=== PATIENT | female | born 1990 | race American Indian/Alaskan Native ===

== ENCOUNTER 2017-04-11 14:55 | Outpatient (CLI) | payer MEDICAID ==
[2017-04-11] MEDS ORDERED: NORMODYNE PO SCH (16:00)
[2017-04-11] MEDS ORDERED: LACTATED RINGERS 1,000 ML IV SCH (16:00)
[2017-04-11 16:40] LABS: Hematocrit 25.9 % (30.3-42.9); Hemoglobin 8.9 gm/dl (10.1-14.3); Mean Corpuscular HGB Conc 34 % (30-34); Mean Corpuscular Hemoglobin 28 pg (28-32); Mean Corpuscular Volume 80 fl (79-97); Platelet Count 217 K/mm3 (140-440); Red Blood Count 3.23 M/mm3 (3.65-5.03); Red Cell Distribution Width 14.2 % (13.2-15.2); White Blood Count 5.3 K/mm3 (4.5-11.0)
[2017-04-11 16:46] LABS: Bacteria,Urine 1+ /HPF (Negative); Bilirubin,Urine NEG (Negative); Blood,Urine NEG (Negative); Ketones,Urine TR mg/dL (Negative); Leukocyte Esterase,Urine SM (Negative); Mucus,Urine 3+ /HPF; Nitrite,Urine NEG (Negative)
[2017-04-11 16:58] VITALS: BP 129/90
[2017-04-11 16:58] LABS: Alanine Aminotransferase 18 units/L (7-56); Lactate Dehydrogenase 201 units/L (91-180); Uric Acid 3.5 mg/dL (3.5-7.6)
== END 2017-04-11 18:00 | disposition home or self-care (01) ==
LOC: TRG 14:55
PROVIDERS: ATTEND Obstetrics & Gynecology
DX: O47.1 False labor at or after 37 completed weeks of gestation (principal); Z3A.37 37 weeks gestation of pregnancy
CPT/HCPCS: 36415; 59025; 81001; 82565; 83615; 84450; 84460; 84550; 85027

== ENCOUNTER 2017-04-18 16:02 | Inpatient (IN) | payer MEDICAID ==
[2017-04-18 17:40] LABS: Hematocrit 26.2 % (30.3-42.9); Hemoglobin 8.9 gm/dl (10.1-14.3); Mean Corpuscular HGB Conc 34 % (30-34); Mean Corpuscular Hemoglobin 27 pg (28-32); Mean Corpuscular Volume 80 fl (79-97); Platelet Count 246 K/mm3 (140-440); Red Blood Count 3.28 M/mm3 (3.65-5.03); Red Cell Distribution Width 14.6 % (13.2-15.2); White Blood Count 5.5 K/mm3 (4.5-11.0)
[2017-04-18 17:56] LABS: Alanine Aminotransferase 21 units/L (7-56); Lactate Dehydrogenase 216 units/L (91-180); Uric Acid 4.3 mg/dL (3.5-7.6)
[2017-04-18] MEDS ORDERED: REGLAN IV SCH (19:00)
[2017-04-18] MEDS ORDERED: ANCEF/STERILE WATER 2 GM/20 ML 2 GM/20 ML SYRINGE IV NR (19:00)
[2017-04-18] MEDS ORDERED: BICITRA PO ONE (19:00)
[2017-04-18] MEDS ORDERED: PITOCin/NS 20 UNIT/1000ML DRIP 20 UNITS/1,000 ML BAG IV SCH (19:00)
[2017-04-18] MEDS ORDERED: LACTATED RINGERS 1,000 ML IV SCH ×2 (19:00→22:26)
[2017-04-18] MEDS ORDERED: PEPCID IV ONE (19:00)
--- NOTE | 2017-04-18 19:19 | History and Physical Report ---
History of Present Illness Date of examination: 04/18/17 Date of admission: 04/18/17 16:03 Chief complaint: CTHN with superimposed preeclampsia History of present illness: Past History : 5 Term Births: 3 Premature Births: 1 Living Children: 4 Para: 4 Mult. Births: 1 Prev : 1 Aborta: 0 Elect. Ab: 0 Spont. Ab: 0 Ectopics: 0 # 1 Delivery date: 10/06/2009 Weeks Gestation: 39 labor: no Delivery type: Hours of labor: >12 Anesthesia type: none Delivery location: [place] [facility] Sex: Male weight: 7lb8oz Name: Kelly # 2 Delivery date: 03/29/2011 Weeks Gestation: T labor: no Delivery type: Hours of labor: 1 Sex: Male Comments: precipitous labor delivered at home or on the [facility] # 3 Delivery date: 07/25/2013 Weeks Gestation: 23 labor: yes Delivery type: Infant Sex: Female Comments: twins, one in utero, PTL, twin del vag then emergency c/s for girl who survived. # 4 Delivery date: 12/06/2015 Weeks Gestation: 39 Delivery type: Anesthesia type: Spinal Delivery location: [facility] Sex: female weight: 5.69 Comments: inadequate care Risk Factors: Smoked Tobacco Use: Never smoker Smokeless Tobacco Use: Never Passive smoke exposure: no Drug use: no HIV high-risk behavior: low risk Caffeine use: 0 drinks per day Alcohol use: no Seatbelt use: preg-camp counselor % Dietary Counseling: pn yes Past Medical History: Reviewed history from 12/04/2010 and no changes required: CHTN Past Surgical History: Reviewed history from 08/30/2015 and no changes required: O-uufolvy-kqwofrmjw at 23 weeks X 2 Past Medical History Surgery (Non-dinkey operator): V-fvrlzgb-afcwthuyi at 23 weeks X 2 Abnormal PAP: negative DANY Exposure: negative Infertility: negative Uterine Anomaly: negative Uterine Surgery (not C/S): negative Other Gynecologic Problems: negative Social Hx: Patient is single Unemployed Infection History Hx of STD: none HIV Risk Eval: low risk Hepatitis B Risk Eval: low risk Personal hx. of genital herpes: no Partner hx. of genital herpes: no Rash, Viral, or Febrile illness since last LMP? no Varicella/Chicken Pox Status: Immunized TB Risk: no Genetic History Congenital Heart Defect: Mom: no Dad: no Fantasma Disease: Mom: no Dad: no Thalassemia Mom: no Dad: no Neural Tube Defect Mom: no Dad: no Down's Syndrome Mom: no Dad: no Sarath-Sachs Mom: no Dad: no Sickle Cell Disease/Trait Mom: no Dad: no Hemophilia Mom: no Dad: no Muscular Dystrophy Mom: no Dad: no Cystic Fibrosis Mom: no Dad: no [place] Chorea Mom: no Dad: no Mental Retardation Mom: no Dad: no Fragile X Mom: no Dad: no Other Genetic/Chromosomal Disorder Mom: no Dad: no Child w/other defect Mom: no Dad: no Enviromental Exposures Xray Exposure: no Medication, drug, or alcohol use since LMP: no Chemical/Other Exposure: no Exposure to Cat Liter: no Hx of Parvovirus (Fifth Disease): no Occupational Exposure to Children: none FALSECurrent Allergies: No known allergies Past History Past Medical History: hypertension - Obstetrical History Expected Date of Delivery: 04/27/17 Actual Gestation: 38 Week(s) 5 Day(s) : 5 Medications and Allergies Allergies Allergy/AdvReac Type Severity Reaction Status Date / Time No Known Allergies Allergy Verified 12/06/15 09:54 Home Medications Medication Instructions Recorded Confirmed Last Taken Type Ferrous Sulfate [Feosol 325 MG tab] 325 mg PO BID #60 tablet 07/24/13 12/06/15 Unknown Rx HYDROcodone/APAP 5-325 [[place] 1 each PO Q6HR PRN #30 tablet 07/24/13 12/06/15 Unknown Rx 5/325 mg] Ibuprofen [Motrin] 600 mg PO Q6H PRN #30 tablet 07/24/13 12/06/15 Unknown Rx Gar257/Iron Fumarate/FA/Dss 1 each PO QDAY #30 tablet 07/24/13 12/06/15 1 Day Ago Rx [ 19 Tablet] Ferrous Sulfate [Feosol 325 MG tab] 325 mg PO BID #60 tablet 12/06/15 Unknown Rx Ibuprofen [Motrin 800 MG tab] 800 mg PO Q6H PRN #30 tablet 12/06/15 Unknown Rx oxyCODONE /ACETAMINOPHEN [Percocet 1 - 2 tab PO Q4H PRN #30 tablet 12/06/15 Unknown Rx 5/325 mg] Labetalol [Normodyne TAB] 200 mg PO BID #60 tablet 12/08/15 Unknown Rx Active Meds: Active Medications Cefazolin Sodium (Ancef/Sterile Water 2 Gm/20 Ml) 2 gm in 20 mls @ 80 mls/hr IV PREOP NR PRN Reason: Protocol Stop: 04/19/17 06:00 Lactated Ringer's (Lactated Ringers) 1,000 mls @ 2,250 mls/hr IV PREOP PAULIE Stop: 04/19/17 19:27 Last Admin: 04/18/17 18:54 Dose: 2,250 mls/hr Oxytocin/Sodium Chloride (Pitocin/Ns 20 Unit/1000ml Drip) 20 units in 1,000 mls @ 0 mls/hr IV TITR PAULIE PRN Reason: As Directed Metoclopramide HCl (Reglan) 10 mg IV ONCE PAULIE Stop: 04/19/17 06:00 Last Admin: 04/18/17 19:08 Dose: 10 mg Review of Systems All systems: negative Neurological: headaches - Vital Signs Vital signs: Vital Signs Pulse BP 83 143/86 04/18/17 16:24 04/18/17 16:24 Temp Pulse Resp BP Pulse Ox 98.9 F 89 16 144/90 97 04/18/17 17:51 04/18/17 19:01 04/18/17 17:51 04/18/17 19:01 04/18/17 18:27 - Physical Exam Breasts: Positive: deferred Cardiovascular: Regular rate Lungs: Positive: Normal air movement Abdomen: Positive: normal appearance Uterus: Positive: normal size Results Result Diagrams: 04/18/17 17:12 04/18/17 17:12 Abnormal lab results 04/18/17 04/18/17 Range/Units 17:12 17:12 RBC 3.28 L (3.65-5.03) M/mm3 Hgb 8.9 L (10.1-14.3) gm/dl Hct 26.2 L (30.3-42.9) % MCH 27 L (28-32) pg Creatinine 0.3 L (0.7-1.2) mg/dL AST 43 H (5-40) units/L Lactate Dehydrogenase 216 H (91-180) units/L All other labs normal. Assessment and Plan - Patient Problems (1) 38 weeks gestation of Current Visit: Yes Status: Acute (2) Chronic hypertension with superimposed preeclampsia Current Visit: Yes Status: Acute (3) Maternal care for scar from previous delivery Current Visit: Yes Status: Acute Qualifiers: Previous delivery type: P Plan to address problem: her diagnosis explained. Questions answered, consents reviewed. She declines sterilization. She was informed with each surgery her risks for severe and major complications increases substantiately i.e. injury fot bowel, bladder, bleeding that requires hysterectomy and possible blood transfusion and reactions and infections. She voiced understanding and desires to proceed with c /s delivery at this time without sterilization.
[2017-04-18] MEDS ORDERED: ZOFRAN ONE (19:27)
[2017-04-18] MEDS ORDERED: WATER FOR IRRIG STERILE IR ONE (19:30)
[2017-04-18] MEDS ORDERED: NACL 0.9% IR ONE (19:30)
[2017-04-18] MEDS ORDERED: MORPHINE ONE (19:48)
[2017-04-18] MEDS ORDERED: NEOSTIGMINE ONE (19:48)
[2017-04-18] MEDS ORDERED: VERSED ONE ×2 (19:49→20:09)
[2017-04-18] MEDS ORDERED: NEO SYNEPHRINE/NS Syringe(OR USE) IV ONE (20:00)
[2017-04-18] MEDS ORDERED: XYLOCAINE MPF 2% ONE (20:08)
[2017-04-18] MEDS ORDERED: BENADRYL IV PRN (20:44)
[2017-04-18] MEDS ORDERED: MORPHINE IV PRN ×4 (20:44→22:26)
[2017-04-18] MEDS ORDERED: ZOFRAN IV PRN ×2 (20:44→22:26)
[2017-04-18] MEDS ORDERED: TORADOL IV PRN ×2 (20:45→22:26)
[2017-04-18] MEDS ORDERED: NARCAN 0.4 MG/1 ML IV PRN ×2 (20:46→22:26)
--- NOTE | 2017-04-18 20:46 | Post Anesthesia Evaluation ---
- Post Anesthesia Evaluation Patient Participated: Yes Airway Patent: Yes Stable Respiratory Function: Yes Nausea/Vomiting: No Temp > 96.8F: Yes Pain Manageable: Yes Adequeate Hydration: Yes Anesthesia Complications: No Block Receding Appropriately: Yes Patient on Ventilator: No
--- NOTE | 2017-04-18 20:46 | Anesthesia Day of Surgery ---
Anesthesia Day of Surgery - Day of Surgery Patient Examined: Yes Patient H&P Reviewed: Yes Patient is NPO: Yes
--- NOTE | 2017-04-18 20:46 | Anesthesia Consultation ---
Anesthesia Consult and Med Hx Date of service: 04/18/17 - Airway Anesthetic Teeth Evaluation: Good ROM Head & Neck: Adequate Mental/Hyoid Distance: Adequate Mallampati Class: Class II Intubation Access Assessment: Probably Good - Pulmonary Exam CTA: Yes - Cardiac Exam Cardiac Exam: RRR - Pre-Operative Health Status ASA Pre-Surgery Classification: ASA3 Proposed Anesthetic Plan: Epidural, Spinal - Pulmonary Hx Asthma: No COPD: No Hx Pneumonia: No - Cardiovascular System Hx Hypertension: Yes (chronic with superimposed pre-eclampsia) - Central Nervous System Hx Seizures: No Hx Psychiatric Problems: No - Endocrine Hx Renal Disease: No Hx End Stage Renal Disease: No Hx Hypothyroidism: No Hx Hyperthyroidism: No - Hematic Hx Anemia: Yes Hx Sickle Cell Disease: No - Other Systems Hx Alcohol Use: No Hx Obesity: Yes - Additional Comments Anesthesia Medical History Comments: +IUP
--- NOTE | 2017-04-18 20:53 | Operative Report ---
Operative Report Operative Report: Date of procedure: 04/18/2017 Pre-operative diagnosis: 1. Intrauterine at 38 weeks 2. Previous requiring repeat 3. Chronic hypertension with superimposed preeclampsia Post-operative diagnosis: 1. Intrauterine at 38 weeks 2. Previous requiring repeat 3. Chronic hypertension with superimposed preeclampsia Procedure name(s): Low transverse section Surgeon: Marisel Campos MD Escalation Engineer: Miryam Lincoln CST Anesthesia: Epidural EBL: 800 mL Complications: None Findings: Liveborn male . Weight 8 lbs. 14 oz. Apgars 8 at 1 minute 9 at 5 minutes. Anesthesiologist: Patience Jj M.D. Procedure: After risks, benefits, and complications and alternatives and consequences, were discussed with patient, and she voiced her understanding and desired to proceed. Patient was taken to the OR, where epidural anesthesia was placed. She was then placed in the left lateral tilt position, and prepped and draped in the usual sterile fashion. After timeout was performed, and an appropriate level of anesthesia was noted, a Pfannenstiel incision was made and extended to the fascia. The fascia was incised and extended in a lateral direction. The overlying fascia was sharply dissected away from the underlying rectus muscles in the superior-inferior direction. The midline was entered bluntly. The vesicouterine fold was incised and with blunt and sharp dissection the bladder flap was created. A transverse incision was made in the lower uterine segment and extended in the superior lateral direction with finger fractionation. Clear fluid was noted. The infant was delivered from the cephalic position.The cord was doubly clamped and cut. The infant's mouth and nose were bulb suctioned. And the was given to the resuscitation team present. The placenta was manually extracted. The uterus was exteriorized and cleaned any products of conception and placental tissue. The incision was reapproximated using 0 Vicryl in a running interlocking stitch. The incision was further reinforced with 0 Vicryl in imbricating fashion. Grossly normal tubes and ovaries were noted. Once hemostasis was noted, the uterus was allowed back into the pelvic cavity. The pelvis was irrigated with warm normal saline. Once hemostasis was noted, Tisseel was applied to the anterior surface of the incision. Once hemostasis was noted, Interceed was applied to the anterior aspect of the uterus for adhesion prevention. Once hemostasis was noted, attention was turned to the rectus muscles. The rectus muscle was reapproximated using 0 Vicryl in a simple interrupted stitch fashion. Once hemostasis was noted, the fascia was reapproximated using 0 Vicryl in a simple running stitch. Once hemostasis was noted, the incision was irrigated with normal saline. The incision was then reapproximated using 4-0 Vicryl on a Dustin needle in a subcuticular manner. Patient tolerated the procedure well she was taken to recovery room in stable condition. Counts were correct 3
[2017-04-18] MEDS ORDERED: TYLENOL PO PRN (22:26)
[2017-04-18] MEDS ORDERED: PHENERGAN PR PRN (22:26)
[2017-04-18] MEDS ORDERED: LANSINOH TP PRN (22:26)
[2017-04-18] MEDS ORDERED: MOTRIN PO PRN (22:26)
[2017-04-18] MEDS ORDERED: MAGNESIUM SULFATE 4GM/100ML 4 GM/100 ML BAG IV ONE (22:26)
[2017-04-18] MEDS ORDERED: TUCKS PAD TP PRN (22:26)
[2017-04-18] MEDS ORDERED: MYLICON PO PRN (22:26)
[2017-04-18] MEDS ORDERED: SODIUM CHLORIDE FLUSH SYRINGE 10 ML IV PRN (22:26)
[2017-04-18] MEDS ORDERED: TYLENOL PR PRN (22:26)
[2017-04-18] MEDS ORDERED: APRESOLINE IV PRN (22:26)
[2017-04-18] MEDS: MAGNESIUM SULFATE 40GM/1000ML 40 GM/1,000 ML BAG IV SCH (23:00)
[2017-04-18] MEDS: PITOCin/NS 20 UNIT/1000ML DRIP 20 UNITS/1,000 ML BAG IV SCH (23:38)
[2017-04-19] MEDS: ANCEF/NS 1 GM/50 ML 1 GM/50 ML BAG IV SCH ×2 (03:01→10:25)
[2017-04-19 08:59] LABS: Hematocrit 28.9 % (30.3-42.9); Hemoglobin 9.7 gm/dl (10.1-14.3)
[2017-04-19] MEDS: PERCOCET 5/325 PO PRN ×3 (10:25→23:44)
[2017-04-19] MEDS: PITOCin/NS 20 UNIT/1000ML DRIP 20 UNITS/1,000 ML BAG IV SCH (11:28)
--- NOTE | 2017-04-19 11:44 | Progress Note ---
Assessment and Plan - Patient Problems (1) Chronic hypertension with superimposed preeclampsia Onset Date: Unknown Current Visit: Yes Status: Acute Plan to address problem: add Labetolol back, cont Mag to complete 24 hours (2) delivery delivered Onset Date: 04/18/17 Current Visit: No Status: Acute Subjective - Subjective Date of service: 04/19/17 Principal diagnosis: r c/s, chr HTN with superimposed PreE Interval history: VVS but BP trending up, will restart Labetolol 20mg bid. On Mag until 2200 tonight. DTR brisk Patient reports: appetite normal, pain well controlled : doing well Objective - Vital Signs Latest vital signs: Vital Signs Temp Pulse Pulse Resp BP BP Pulse Ox 04/19/17 08:10 98.0 F 71 17 140/90 04/19/17 06:00 98.3 F 65 18 123/77 04/19/17 04:00 98.2 F 65 18 132/82 04/19/17 02:30 98.2 F 65 20 133/81 04/18/17 23:45 98.4 F 64 20 144/88 04/18/17 22:05 16 04/18/17 22:00 66 16 130/95 98 04/18/17 21:45 63 16 136/91 98 04/18/17 21:30 66 16 137/85 98 04/18/17 21:15 67 19 131/84 98 04/18/17 21:00 75 18 125/79 98 04/18/17 20:45 78 19 129/79 97 04/18/17 20:40 83 16 126/82 97 04/18/17 20:36 98.0 F 83 20 118/68 97 04/18/17 19:01 89 144/90 04/18/17 18:27 80 97 04/18/17 18:22 81 99 04/18/17 18:21 81 147/91 04/18/17 18:17 82 98 04/18/17 18:16 79 143/85 04/18/17 18:12 86 98 04/18/17 18:07 82 98 04/18/17 18:02 80 99 04/18/17 18:01 80 129/77 04/18/17 17:57 84 98 04/18/17 17:52 83 99 04/18/17 17:51 98.9 F 80 16 130/78 98 04/18/17 17:46 90 130/78 04/18/17 17:44 85 98 04/18/17 17:39 78 97 04/18/17 17:34 84 98 04/18/17 17:31 93 H 128/78 04/18/17 17:29 84 99 04/18/17 17:17 80 134/83 04/18/17 17:01 94 H 135/88 04/18/17 16:24 83 143/86 Intake and Output 04/18/17 04/19/17 04/19/17 22:59 06:59 14:59 Intake Total 500 1320 480 Output Total 450 6200 2300 Balance 50 -5030 -3559 Intake: IV 500 900 ANCEF/NS 1 GM/50 ML 1 gm 100 In 50 ml @ 100 mls/hr IV Q8H PAULIE Rx#:[id number] MAGNESIUM SULFATE 40GM/ 350 1000ML 40 gm In 1,000 ml @ 2 GM/HR 50 mls/hr IV TITR PAULIE Rx#:[id number] PITOCin/NS 20 UNIT/1000ML 450 DRIP 20 units In 1,000 ml @ 250 mls/hr IV DIRECT PAULIE Rx#:[id number] Oral 480 Intake, Free Water 420 Output: Urine 450 6200 2300 Indwelling Catheter 6200 2300 Uretheral (Schroeder) 150 Other: Total, Intake Amount 480 Total, Output Amount 1700 700 Weight 200 lb Estimated Blood Loss 800 - Exam Breasts: Present: deferred Cardiovascular: Present: Regular rate Lungs: Present: Normal air movement Abdomen: Present: normal appearance, soft Uterus: Present: firm Extremities: Present: normal Deep Tendon Reflex Grade: Normal but brisk +3 Incision: Present: normal, dry, intact (bandage removed) - Labs Labs: Abnormal lab results 04/18/17 04/18/17 04/19/17 Range/Units 17:12 17:12 08:26 RBC 3.28 L (3.65-5.03) M/mm3 Hgb 8.9 L (10.1-14.3) gm/dl Hct 26.2 L (30.3-42.9) % MCH 27 L (28-32) pg Creatinine 0.3 L (0.7-1.2) mg/dL Magnesium 3.90 H (1.7-2.3) mg/dL AST 43 H (5-40) units/L Lactate Dehydrogenase 216 H (91-180) units/L 04/19/17 04/19/17 Range/Units 08:26 Unknown RBC (3.65-5.03) M/mm3 Hgb 9.7 L (10.1-14.3) gm/dl Hct 28.9 L (30.3-42.9) % MCH (28-32) pg Creatinine (0.7-1.2) mg/dL Magnesium 3.50 H (1.7-2.3) mg/dL AST (5-40) units/L Lactate Dehydrogenase (91-180) units/L
[2017-04-19] MEDS: NORMODYNE PO SCH ×2 (12:33→22:40)
[2017-04-19] MEDS ORDERED: VISTARIL PO ONE (14:00)
[2017-04-19] MEDS ORDERED: ALUM-MAG HYDROX-SIMETH 200-200-20MG/5ML PO ONE (14:00)
[2017-04-19] MEDS: MAGNESIUM SULFATE 40GM/1000ML 40 GM/1,000 ML BAG IV SCH (16:14)
[2017-04-20] MEDS: PERCOCET 5/325 PO PRN ×2 (05:49→11:47)
[2017-04-20] MEDS ORDERED: BOOSTRIX IM ONE (06:00)
[2017-04-20] MEDS: NORMODYNE PO SCH (10:22)
--- NOTE | 2017-04-20 10:26 | Discharge Summary ---
Providers - Providers Date of Admission: 04/18/17 16:03 Date of discharge: 04/20/17 Attending physician: ALBERTO AMEZCUA 04/18/17 22:26 Consult to Burlesque Dancer [CONS] Routine Reason For Exam: Primary care physician: ALBERTO AMEZCUA Hospitalization Reason for admission: R c/s, term, superimposed PreE Condition: Good Pertinent studies: MBT AB+, Hct 28.9 Procedures: Repeat c/s, received 24 hr Mag infusion and restarted on Labetolol 200 bid Hospital course: Admitted for chr HTN with superimposed Pre E and underwent repeat c/s with viable infant, received 24 hr Mag, pp elevated BP tx by resuming Labetolol 200 bid. Had one episode of chest pain pp that resolved with Mylanta and Vistaril 50 po. Disposition: - TO HOME OR SELFCARE - Discharge Diagnoses (1) delivery delivered Status: Acute (2) Chronic hypertension with superimposed preeclampsia Status: Acute Core Measure Documentation - Palliative Care Palliative Care/ Comfort Measures: Not Applicable - Core Measures Any of the following diagnoses?: none Exam - Constitutional Vitals: Temp Pulse Resp BP Pulse Ox 98.0 F 65 20 112/69 98 04/20/17 04:45 04/20/17 04:45 04/20/17 04:45 04/20/17 04:45 04/18/17 22:00 General appearance: Present: no acute distress - Respiratory Respiratory effort: normal - Extremities Extremities: no ischemia, No edema - Abdominal General gastrointestinal: Present: soft, non-tender (fundus firm, incision ok) Female genitourinary: Present: deferred - Rectal Rectal Exam: deferred - Integumentary Integumentary: Present: clear, warm, dry - Psychiatric Psychiatric: appropriate mood/affect Plan Activity: no restrictions Weight Bearing Status: Full Weight Bearing Diet: regular Follow up with: ALBERTO AMEZCUA MD [Primary Care Provider] - 7 Days Prescriptions: Ibuprofen [Motrin 800 MG tab] 800 mg PO TID PRN #30 tablet PRN Reason: Pain Labetalol [Normodyne TAB] 200 mg PO BID #60 tablet Lidocain2.5%/Prilocai2.5% [Emla] 5 gm TP ONCE #1 tube oxyCODONE /ACETAMINOPHEN [Percocet 5/325 mg] 1 - 2 tab PO Q4HR PRN #30 tablet PRN Reason: Pain
[2017-04-20 16:20] VITALS: BP 132/79
== END 2017-04-20 16:15 | disposition home or self-care (01) | DRG 765 ==
LOC: TRG 16:02 → APU 16:03 → OB 22:55
PROVIDERS: ADMIT Obstetrics & Gynecology; ATTEND Obstetrics & Gynecology
PROC: 10D00Z1 Extraction of Products of Conception, Low, Open Approach (ICD-10-PCS; principal; 2017-04-18)
PROC: 3E0234Z Introduction of Serum, Toxoid and Vaccine into Muscle, Percutaneous Approach (ICD-10-PCS; 2017-04-18)
DX: O34.211 Maternal care for low transverse scar from previous cesarean delivery (principal); O11.4 Pre-existing hypertension with pre-eclampsia, complicating childbirth; Z3A.38 38 weeks gestation of pregnancy; Z37.0 Single live birth
CPT/HCPCS: 36415; 82565; 83615; 83735; 84450; 84460; 84550; 85014; 85018; 85027; 86850; 86900; 86901; 88307; 90715; 93005; 93010; 99211; G0463; J0690; J1200; J1885; J2250; J2270; J2370; J2405; J2590; J2710; J2765; J3475; J7120; Q0177